=== PATIENT | male | born 1980 | race African-American/Black ===

== ENCOUNTER 2016-11-06 23:09 | Emergency (ER) | payer SELFPAY ==
[2016-11-07] MEDS ORDERED: Fluorescein Opthalmic Strip ONE (00:06)
[2016-11-07] MEDS ORDERED: Acetaminophen 500 MG TAB ONE (01:08)
[2016-11-07] MEDS ORDERED: Cyclobenzaprine 10 MG TAB ONE (01:08)
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
== END 2016-11-07 02:45 | disposition home or self-care (01) ==
LOC: NAV ERS 23:09
DX: S33.5XXA Sprain of ligaments of lumbar spine, initial encounter (principal); H16.001 Unspecified corneal ulcer, right eye; F17.210 Nicotine dependence, cigarettes, uncomplicated; V89.2XXA Person injured in unspecified motor-vehicle accident, traffic, initial encounter
CPT/HCPCS: 72100

== ENCOUNTER 2021-01-30 14:32 | Emergency (ER) | payer SELFPAY | END 2021-01-30 15:03 | disposition home or self-care (01) | LOC: NAV ERS 14:32 | DX: M62.830 Muscle spasm of back (principal); F17.210 Nicotine dependence, cigarettes, uncomplicated | CPT/HCPCS: 99283 ==

== ENCOUNTER 2021-05-26 13:35 | Emergency (ER) | payer BC, SELFPAY ==
[2021-05-27 12:06] LABS: SARS-CoV-2 PCR by NAA Not Detected (NotDetected)
== END 2021-05-26 14:35 | disposition home or self-care (01) ==
LOC: NAV ERS 13:35
DX: Z20.822 Contact with and (suspected) exposure to COVID-19 (principal); F17.210 Nicotine dependence, cigarettes, uncomplicated
CPT/HCPCS: 99283; U0003; U0005